=== PATIENT | female | born 1980 | race Caucasian/White ===

== ENCOUNTER 2017-08-17 05:35 | Emergency (ER) | payer BC, OTHER ==
[~2017-08-17] VITALS: Ht 175.3 cm; Wt 64.0 kg
[~2017-08-17 05:35] MED LIST: CLIN2CRE5 VAGINAL
[2017-08-17 05:42] VITALS: BP 114/56; PULSE 49; RESP 16; TEMP 98; O2SAT 99
--- NOTE | 2017-08-17 05:57 | PD ---
HPI Chief Complaint: Abdominal pain/vomiting Time Seen by Provider: 05:54 Travel History International Travel<30 days: No Contact w/Intl Traveler<30days: No Traveled to known affect area: No History of Present Illness HPI The patient is a 37-year-old female who complains of lower abdominal cramps beginning at 230 this morning along with nausea and vomiting beginning at 430 this morning. She denies vomiting any blood. She denies any fever. She states there is no possibility of , she has not had sexual intercourse since March. She denies any dysuria, frequency urgency. The patient's pain is crampy and an 8/10 in the lower quadrants, mostly right lower quadrant. PFSH Past Medical History : 2 Para: 0 Miscarriage: 1 : 1 Past Surgical History Tonsillectomy: Yes Social History Alcohol Use: Yes (1 BEER/DAY) Tobacco Use: Yes (1/2 PACK DAILY) Substance Use: No Allergies-Medications (Allergen,Severity, Reaction): Coded Allergies: No Known Allergies (Unverified Allergy, Unknown, 08/17/17) Reported Meds & Prescriptions Reported Meds & Active Scripts Active Clindesse Vaginal Cream (Clindamycin Vaginal Cream) 2% Cream 1 Appl VAGINAL ONCE Reported Aspirin 325 Mg Tab 650 Mg PO DAILY Review of Systems Except as stated in HPI: all other systems reviewed are Neg Physical Exam Narrative GENERAL: The patient is alert, oriented 3 in moderate apparent distress with her abdominal discomfort. Her vital signs are normal. SKIN: Focused skin assessment warm/dry. HEAD: Atraumatic. Normocephalic. EYES: Pupils equal and round. No scleral icterus. No injection or drainage. ENT: No nasal bleeding or discharge. Mucous membranes pink and moist. NECK: Trachea midline. No JVD. CARDIOVASCULAR: Regular rate and rhythm. No murmur appreciated. RESPIRATORY: No accessory muscle use. Clear to auscultation. Breath sounds equal bilaterally. GASTROINTESTINAL: Abdomen soft, with tenderness to direct palpation in the right lower quadrant, nondistended. Hepatic and splenic margins not palpable. No guarding or rebound is present. MUSCULOSKELETAL: No obvious deformities. No clubbing. No cyanosis. No edema. NEUROLOGICAL: Awake and alert. No obvious cranial nerve deficits. Motor grossly within normal limits. Normal speech. PSYCHIATRIC: Appropriate mood and affect; insight and judgment normal. Data Data Last Documented VS Vital Signs Date Time Temp Pulse Resp B/P (MAP) Pulse Ox O2 Delivery O2 Flow Rate FiO2 08/17/17 06:11 20 08/17/17 06:08 48 118/70 (86) 99 08/17/17 05:42 98.0 Orders Orders Complete Blood Count With Diff (08/17/17 05:54) Comprehensive Metabolic Panel (08/17/17 05:54) Lipase (08/17/17 05:54) Urinalysis - C+S If Indicated (08/17/17 05:54) Ct Abd/Pel W Iv Contrast(Rout) (08/17/17 05:54) Iv Access Insert/Monitor (08/17/17 05:54) Ecg Monitoring (08/17/17 05:54) Oximetry (08/17/17 05:54) Sodium Chloride 0.9% Flush (Ns Flush) (08/17/17 06:00) Morphine Inj (Morphine Inj) (08/17/17 06:45) Prochlorperazine Inj (Compazine Inj) (08/17/17 06:45) Sodium Chlor 0.9% 1000 Ml Inj (Ns 1000 M (08/17/17 07:00) Morphine Inj (Morphine Inj) (08/17/17 07:00) Labs Laboratory Tests Test 08/17/17 06:00 White Blood Count 8.0 TH/MM3 Red Blood Count 4.09 MIL/MM3 Hemoglobin 13.4 GM/DL Hematocrit 39.3 % Mean Corpuscular Volume 96.1 FL Mean Corpuscular Hemoglobin 32.6 PG Mean Corpuscular Hemoglobin Concent 34.0 % Red Cell Distribution Width 12.8 % Platelet Count 321 TH/MM3 Mean Platelet Volume 8.2 FL Neutrophils (%) (Auto) 61.1 % Lymphocytes (%) (Auto) 28.0 % Monocytes (%) (Auto) 8.4 % Eosinophils (%) (Auto) 1.6 % Basophils (%) (Auto) 0.9 % Neutrophils # (Auto) 4.9 TH/MM3 Lymphocytes # (Auto) 2.2 TH/MM3 Monocytes # (Auto) 0.7 TH/MM3 Eosinophils # (Auto) 0.1 TH/MM3 Basophils # (Auto) 0.1 TH/MM3 CBC Comment DIFF FINAL Differential Comment Blood Urea Nitrogen 13 MG/DL Creatinine 0.79 MG/DL Random Glucose 93 MG/DL Total Protein 8.0 GM/DL Albumin 4.0 GM/DL Calcium Level 8.9 MG/DL Alkaline Phosphatase 53 U/L Aspartate Amino Transf (AST/SGOT) 24 U/L Alanine Aminotransferase (ALT/SGPT) 14 U/L Total Bilirubin 0.5 MG/DL Sodium Level 138 MEQ/L Potassium Level 3.9 MEQ/L Chloride Level 105 MEQ/L Carbon Dioxide Level 22.5 MEQ/L Anion Gap 11 MEQ/L Estimat Glomerular Filtration Rate 81 ML/MIN Lipase 136 U/L [facility] Medical Decision Making Medical Screen Exam Complete: Yes Emergency Medical Condition: Yes Medical Record Reviewed: Yes Interpretation(s) The complete metabolic profile shows a GFR of 81 but is otherwise normal. The CBC is normal. The lipase is normal. Differential Diagnosis Urinary stone, ruptured ovarian cyst, acute appendicitis, colitis, mesenteric adenitis Narrative Course It is now 0656 and the patient is transferred to Dr. Chakraborty. Hiren Pruitt MD Aug 17, 2017 05:57
[2017-08-17] MEDS ORDERED: SODIUM CHLORIDE 0.9% FLUSH 10 ML FLUSH IV FLUSH PRN (06:00)
[2017-08-17 06:06] LABS: AUTOMATED NEUTROPHIL # 4.9 TH/MM3 (1.8-7.7); BASOPHIL # 0.1 TH/MM3 (0-0.2); BASOPHIL % 0.9 % (0.0-2.0); EOSINOPHIL # 0.1 TH/MM3 (0-0.4); EOSINOPHIL % 1.6 % (0.0-4.0); HEMATOCRIT 39.3 % (35.0-46.0); HEMOGLOBIN 13.4 GM/DL (11.6-15.3); LYMPHOCYTE # 2.2 TH/MM3 (1.0-4.8); MEAN CELL VOLUME 96.1 FL (80.0-100.0); MEAN CORPUSCULAR HEMOGLOBIN 32.6 PG (27.0-34.0); MEAN PLATELET VOLUME 8.2 FL (7.0-11.0); MONO % 8.4 % (0.0-8.0); MONOCYTE # 0.7 TH/MM3 (0-0.9); NEUT % 61.1 % (16.0-70.0); PLATELET COUNT 321 TH/MM3 (150-450); RED BLOOD COUNT 4.09 MIL/MM3 (4.00-5.30); RED CELL DISTRIBUTION WIDTH 12.8 % (11.6-17.2)
[2017-08-17 06:08] VITALS: BP 118/70; PULSE 48; RESP 20; O2SAT 99
[2017-08-17 06:16] LABS: CHLORIDE 105 MEQ/L (98-107); SODIUM (NA) 138 MEQ/L (136-145)
[2017-08-17 06:19] LABS: CALCIUM 8.9 MG/DL (8.5-10.1)
[2017-08-17 06:20] LABS: BICARBONATE 22.5 MEQ/L (21.0-32.0); BLOOD UREA NITROGEN 13 MG/DL (7-18); GLUCOSE,RANDOM 93 MG/DL (74-106)
[2017-08-17 06:22] LABS: ALT (GPT) 14 U/L (10-53); AST (GOT) 24 U/L (15-37)
[2017-08-17 06:23] LABS: CREATININE 0.79 MG/DL (0.50-1.00); GLOMERULAR FILTRATION RATE 81 ML/MIN (>89)
[2017-08-17 06:24] LABS: TOTAL BILIRUBIN ADULT 0.5 MG/DL (0.2-1.0)
[2017-08-17 06:25] LABS: ALKALINE PHOSPHATASE 53 U/L (45-117)
[2017-08-17] MEDS ORDERED: PROCHLORPERAZINE INJ 10 MG/2 ML VIAL IV PUSH ONE (06:45)
[2017-08-17] MEDS ORDERED: ASPI-183 PO (06:45)
[2017-08-17] MEDS ORDERED: MORPHINE SULFATE 4 MG/ML INJ IV PUSH ONE (06:45)
[2017-08-17] MEDS ORDERED: SODIUM CHLOR 0.9% 1000 ML INJ 1,000 ML IV SCH (07:00)
[2017-08-17] MEDS ORDERED: MORPHINE SULFATE 2 MG/ML SYRINGE IV PUSH ONE (07:00)
[2017-08-17] MEDS ORDERED: IOHEXOL 350 MG/ML 10 ML VIAL (for RAD DIAG) IVCONTRAST ONE (07:03)
--- NOTE | 2017-08-17 07:16 | RADRPT ---
EXAM DATE: 08/17/2017 7:04 AM EDT AGE/SEX: 37 years / Female INDICATIONS: Right lower quadrant pain. CLINICAL DATA: This is the patient's initial encounter. Patient reports that signs and symptoms have been present for 1 day and indicates a pain score of 8/10. MEDICAL/SURGICAL HISTORY: None. Appendectomy. ORAL CONTRAST: No oral contrast ingested. RADIATION DOSE: 6.36 CTDI (mGy) COMPARISON: [facility], CT ABDOMEN & PELVIS W CONTRAST, 10/10/2014. . TECHNIQUE: Multiple contiguous axial images were obtained through the abdomen and pelvis following b olus infusion of 100 ml Omnipaque 350 (iohexol) nonionic water-soluble contrast as a single exam do se. No oral contrast ingested. Using automated exposure control and adjustment of the mA and/or kV a ccording to patient size, radiation dose was kept as low as reasonably achievable to obtain optimal d iagnostic quality images. DICOM format image data is available electronically for review and compari son. FINDINGS: Lower Lungs: The visualized lower lungs are clear. Liver: The liver has a homogeneous density without space-occupying lesion. There is no dilation of th e biliary tree. Spleen: Homogeneous density without enlargement. Pancreas: Unremarkable without mass or calcification. Kidneys: Normal in size and shape. No evidence of mass or hydronephrosis. Adrenal Glands: Unremarkable. Aorta: The aorta and proximal iliac vessels are grossly unremarkable without aneurysmal dilation. Bowel/Mesentery: No oral contrast was given limiting the sensitivity. The bowel loops are grossly un remarkable. The cecum and sigmoid colon have a normal configuration. Abdominal Wall: Intact. Retroperitoneum: No evidence of adenopathy in the retrocrural, para-aortic, or deep pelvic regions. Bladder: Contours are smooth. Reproductive Organs: Uterus is again noted to be enlarged and diffusely heterogeneous with multiple enhancing masses which are poorly defined. One of the masses measures up to approximately 5.4 cm in d iameter and another mass measures up to approximately 4.9 cm. In addition there is an oval well-defin ed new mass in the right adnexa abutting the right side of the bladder measuring up to 3.4 x 5.2 cm w hich measures 49 Hounsfield units density is fairly uniform in appearance. Inguinal: The inguinal region is unremarkable without evidence of adenopathy. Bony Structures: Unremarkable. CONCLUSION: 1. New oval right-sided pelvic mass measuring 49 Hounsfield units which may represent an ovarian les ion. This could be further evaluated with pelvic ultrasound. 2. Uterus remains diffusely heterogeneous and leiomyomatous appearance with multiple ill-defined mas ses. 3. Unremarkable bowel gas pattern. Electronically signed by: Antonio Baker MD 08/17/2017 7:14 AM EDT
[2017-08-17 07:22] VITALS: RESP 18
--- NOTE | 2017-08-17 07:35 | PD ---
Physical Exam Date Seen by Provider: Aug 17, 2017 Narrative Care was assumed at [address] and urinalysis. Patient presented early this morning with lower abdominal pain. She was tender in the right lower quadrant. Therefore, CT of the abdomen and pelvis was ordered. The patient reports that she has had a recent outpatient ultrasound. She has known fibroid tumors and ovarian cyst. She is followed by gynecology for these. Data Data Last Documented VS Vital Signs Date Time Temp Pulse Resp B/P (MAP) Pulse Ox O2 Delivery O2 Flow Rate FiO2 08/17/17 07:22 18 08/17/17 06:08 48 118/70 (86) 99 08/17/17 05:42 98.0 Orders Orders Complete Blood Count With Diff (08/17/17 05:54) Comprehensive Metabolic Panel (08/17/17 05:54) Lipase (08/17/17 05:54) Urinalysis - C+S If Indicated (08/17/17 05:54) Ct Abd/Pel W Iv Contrast(Rout) (08/17/17 05:54) Iv Access Insert/Monitor (08/17/17 05:54) Ecg Monitoring (08/17/17 05:54) Oximetry (08/17/17 05:54) Sodium Chloride 0.9% Flush (Ns Flush) (08/17/17 06:00) Morphine Inj (Morphine Inj) (08/17/17 06:45) Prochlorperazine Inj (Compazine Inj) (08/17/17 06:45) Sodium Chlor 0.9% 1000 Ml Inj (Ns 1000 M (08/17/17 07:00) Morphine Inj (Morphine Inj) (08/17/17 07:00) Iohexol 350 Inj (Omnipaque 350 Inj) (08/17/17 07:03) Cath For Specimen (08/17/17 07:12) Labs Laboratory Tests Test 08/17/17 06:00 08/17/17 07:32 White Blood Count 8.0 TH/MM3 Red Blood Count 4.09 MIL/MM3 Hemoglobin 13.4 GM/DL Hematocrit 39.3 % Mean Corpuscular Volume 96.1 FL Mean Corpuscular Hemoglobin 32.6 PG Mean Corpuscular Hemoglobin Concent 34.0 % Red Cell Distribution Width 12.8 % Platelet Count 321 TH/MM3 Mean Platelet Volume 8.2 FL Neutrophils (%) (Auto) 61.1 % Lymphocytes (%) (Auto) 28.0 % Monocytes (%) (Auto) 8.4 % Eosinophils (%) (Auto) 1.6 % Basophils (%) (Auto) 0.9 % Neutrophils # (Auto) 4.9 TH/MM3 Lymphocytes # (Auto) 2.2 TH/MM3 Monocytes # (Auto) 0.7 TH/MM3 Eosinophils # (Auto) 0.1 TH/MM3 Basophils # (Auto) 0.1 TH/MM3 CBC Comment DIFF FINAL Differential Comment Blood Urea Nitrogen 13 MG/DL Creatinine 0.79 MG/DL Random Glucose 93 MG/DL Total Protein 8.0 GM/DL Albumin 4.0 GM/DL Calcium Level 8.9 MG/DL Alkaline Phosphatase 53 U/L Aspartate Amino Transf (AST/SGOT) 24 U/L Alanine Aminotransferase (ALT/SGPT) 14 U/L Total Bilirubin 0.5 MG/DL Sodium Level 138 MEQ/L Potassium Level 3.9 MEQ/L Chloride Level 105 MEQ/L Carbon Dioxide Level 22.5 MEQ/L Anion Gap 11 MEQ/L Estimat Glomerular Filtration Rate 81 ML/MIN Lipase 136 U/L Urine Collection Type CLEAN CATCH Urine Color YELLOW Urine Turbidity CLEAR Urine pH 5.0 Urine Specific [place] LESS/EQUAL 1.005 Urine Protein NEG mg/dL Urine Glucose (UA) NEG mg/dL Urine Ketones 40 mg/dL Urine Occult Blood MOD Urine Nitrite NEG Urine Bilirubin NEG Urine Urobilinogen 0.2 MG/DL Urine Leukocyte Esterase NEG Urine RBC 10-14 /hpf Urine WBC 0-2 /hpf Urine Squamous Epithelial Cells 0-5 /hpf Microscopic Urinalysis Comment CULT NOT INDICATED [facility] Supervised Visit with CRISPIN: No Narrative Course CBC & BMP Diagram 08/17/17 06:00 Total Protein 8.0, Albumin 4.0, Calcium Level 8.9, Alkaline Phosphatase 53, Aspartate Amino Transf (AST/SGOT) 24, Alanine Aminotransferase (ALT/SGPT) 14, Total Bilirubin 0.5 Last Impressions Abdomen/Pelvis CT 08/17/17 0514 Signed Impressions: CONCLUSION: 1. New oval right-sided pelvic mass measuring 49 Hounsfield units which may re present an ovarian lesion. This could be further evaluated with pelvic ultrasou nd. 2. Uterus remains diffusely heterogeneous and leiomyomatous appearance with mu ltiple ill-defined masses. 3. Unremarkable bowel gas pattern. In light of the fact that the patient has had a recent outpatient ultrasound and is followed by gynecology, and ultrasound will not be ordered in the emergency department. UA does show blood. However, no stone was noted on her CT of her abdomen and pelvis. E-Ghazalacse has been queried and reviewed. She will be discharged with a prescription for [place] and Zofran and instructions to follow-up with her technical systems architect within the week. Diagnosis Primary Impression: Pelvic pain Referrals: [facility] 3 days Patient Instructions: General Instructions, Narcotic given in the ED, Pelvic Pain in Women ([place]) Med/Other Pt SpecificInfo: Prescription(s) given Scripts Ondansetron (Zofran) 4 Mg Tab 4 MG PO Q6HR Y for NAUSEA OR VOMITING, #12 TAB 0 Refills Prov: Nicole Chakraborty MD 08/17/17 Hydrocodone-Acetaminophen ([place]) 5 Mg-325 Mg Tab 1 TAB PO Q4H Y for PAIN, #12 TAB 0 Refills Prov: Nicole Chakraborty MD 08/17/17 Disposition: 01 DISCHARGE HOME Condition: Stable Nicole Chakraborty MD Aug 17, 2017 07:35
[2017-08-17] MEDS ORDERED: ZOFR4TAB PO (07:37)
[2017-08-17] MEDS ORDERED: NORC5TAB PO (07:37)
[2017-08-17 07:41] LABS: BILIRUBIN, URINE NEG (NEG); BLOOD, URINE MOD (NEG); GLUCOSE,URINE NEG (NEG); KETONE, URINE 40 mg/dL (NEG); NITRITE,URINE NEG (NEG); URINE COLOR YELLOW (YELLW/STRAW); URINE LEUKOCYTE ESTERASE NEG (NEG)
[2017-08-17 07:50] LABS: SQUAMOUS EPITHELIAL CELL URINE 0-5 /hpf (0-5); WBC, URINE 0-2 /hpf (0-5)
[2017-08-17] MEDS ORDERED: KETOROLAC TROMETHAMINE 30 MG/ML (IVP) VIAL IV PUSH ONE (08:00)
== END 2017-08-17 08:12 | disposition home or self-care (01) ==
LOC: PHED 05:35
DX: R10.2 Pelvic and perineal pain (principal); R11.2 Nausea with vomiting, unspecified; F17.200 Nicotine dependence, unspecified, uncomplicated
CPT/HCPCS: 74177; 80053; 81001; 83690; 85025; 96361; 96374; 96375; 99284; J0780; J1885; J2270; J7030; Q9967